=== PATIENT | female | born 2000 | race American Indian/Alaskan Native ===

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

== ENCOUNTER 2019-04-23 18:00 | Emergency (ER) | payer MEDICAID, OTHER ==
[2019-04-23 18:15] VITALS: BP 124/70
--- NOTE | 2019-04-23 18:15 | Event Note ---
ED Screening Note Date of service: 04/23/19 Time: 18:14 ED Screening Note: 19 y/o female comes in for headache times since . LMP April 02. Denies any trauma. This initial assessment/diagnostic orders/clinical plan/treatment(s) is/are subject to change based on patients health status, clinical progression and re- assessment by fellow clinical providers in the ED. Further treatment and workup at subsequent clinical providers discretion. Patient/guardian urged not to elope from the ED as their condition may be serious if not clinically assessed and managed. Initial orders include:
[2019-04-23] MEDS ORDERED: DECADRON IM ONE (20:23)
[2019-04-23] MEDS ORDERED: BENADRYL PO ONE (20:23)
[2019-04-23] MEDS ORDERED: TYLENOL PO ONE (20:23)
[2019-04-23] MEDS ORDERED: REGLAN PO ONE (20:23)
--- NOTE | 2019-04-23 21:49 | Emergency Department Report ---
ED Headache HPI - General Chief Complaint: Headache Stated Complaint: HEADACHE/BP HIGH Time Seen by Provider: 04/23/19 20:22 - History of Present Illness Initial Comments: 19 y/o female comes in for headache times since . hx of same to same location and intensity , there is associated sinus pain pressure and sweling with yellow greening post nasal drip. LMP April 02. Denies any trauma. Timing/Duration: 1 week Quality: moderate Head Injury Location: frontal Recent Head Trauma: no recent headache/trauma, occasional headaches Modifying Factors: improves with: movement Associated Symptoms: facial pain, nasal congestion, nasal drainage, sinus infection Allergies/Adverse Reactions: Allergies No Known Allergies Allergy (Verified 04/23/19 18:15) Home Medications: Ambulatory Orders Acetaminophen [Acetaminophen TAB] 1,000 mg PO Q6HR PRN #30 tablet 04/23/19 Amoxicillin/Potassium Clav [Augmentin 875-125 Tablet] 1 each PO BID 10 Days #20 tablet 04/23/19 Metoclopramide [Reglan] 10 mg PO Q6H PRN #30 tablet 04/23/19 diphenhydrAMINE [Benadryl CAP] 25 mg PO Q6HR PRN #30 capsule 04/23/19 ED Review of Systems ROS: Stated complaint: HEADACHE/BP HIGH Other details as noted in HPI Constitutional: denies: chills, fever Eyes: denies: eye pain, eye discharge, vision change ENT: congestion. denies: ear pain, throat pain Respiratory: denies: cough, shortness of breath, wheezing Cardiovascular: denies: chest pain, palpitations Endocrine: no symptoms reported Gastrointestinal: denies: abdominal pain, nausea, diarrhea Genitourinary: denies: urgency, dysuria, discharge Musculoskeletal: denies: back pain, joint swelling, arthralgia Skin: denies: rash, lesions Neurological: headache. denies: weakness, numbness, paresthesias, confusion, vertigo Psychiatric: denies: anxiety, depression Hematological/Lymphatic: denies: easy bleeding, easy bruising ED Past Medical Hx - Past Medical History Previous Medical History?: Yes Hx Hypertension: No Hx Congestive Heart Failure: No Hx Diabetes: No Hx Deep Vein Thrombosis: No Hx Renal Disease: No Hx Sickle Cell Disease: Yes (trait) Hx Seizures: No Hx Asthma: Yes Hx COPD: No Hx HIV: No - Surgical History Past Surgical History?: Yes Additional Surgical History: ABD HERNIA REPAIR / T&A - Social History Smoking Status: Never Smoker Substance Use Type: None, Marijuana - Medications Home Medications: Home Medications Medication Instructions Recorded Confirmed Last Taken Type Acetaminophen [Acetaminophen TAB] 1,000 mg PO Q6HR PRN #30 tablet 04/23/19 Unknown Rx Amoxicillin/Potassium Clav 1 each PO BID 10 Days #20 tablet 04/23/19 Unknown Rx [Augmentin 875-125 Tablet] Metoclopramide [Reglan] 10 mg PO Q6H PRN #30 tablet 04/23/19 Unknown Rx diphenhydrAMINE [Benadryl CAP] 25 mg PO Q6HR PRN #30 capsule 04/23/19 Unknown Rx ED Physical Exam - General Limitations: No Limitations General appearance: alert, in no apparent distress - Head Head exam: Present: atraumatic, normocephalic - Eye Eye exam: Present: normal appearance, PERRL, EOMI. Absent: conjunctival injection, nystagmus Pupils: Present: normal accommodation - ENT ENT exam: Present: mucous membranes moist, TM's normal bilaterally, normal external ear exam, other (bilat sinus pressure swelling yellow rhinorrhea pain to palpation ) - Expanded ENT Exam Expanded Ear exam: Present: normal external inspection Mouth exam: Absent: trismus Throat exam: Positive: tonsillar erythema, other (uvula midline no exudate ). Negative: tonsillomegaly, tonsillar exudate, R peritonsillar mass, L peritonsillar mass - Neck Neck exam: Present: normal inspection - Respiratory Respiratory exam: Present: normal lung sounds bilaterally, chest wall tenderness. Absent: respiratory distress, wheezes, stridor - Cardiovascular Cardiovascular Exam: Present: regular rate, normal rhythm, normal heart sounds. Absent: systolic murmur, diastolic murmur, rubs, gallop - GI/Abdominal GI/Abdominal exam: Present: soft, normal bowel sounds. Absent: distended, tenderness, guarding, rebound, rigid, bruit, hernia - Extremities Exam Extremities exam: Present: normal inspection - Back Exam Back exam: Present: normal inspection - Neurological Exam Neurological exam: Present: alert, oriented X3, CN II-XII intact, normal gait, reflexes normal. Absent: motor sensory deficit - Expanded Neurological Exam Expanded Patient oriented to: Present: person, place, time Speech: Present: fluid speech Cranial nerves: EOM's Intact: Normal, Gag Reflex: Normal, Tongue Deviation: Normal, Nystagmus: Normal, Facial Sensation: Normal Cerebellar function: Finger to Nose: Normal, Heel to Singh: Normal, Romberg: Normal Upper motor neuron: Javi Neglect: Normal, Pronator Drift: Normal, Babinski Sign: Normal, Sensory Extinction: Normal Motor strength exam: RUE: 5, LUE: 5, RLE: 5, LLE: 5 Best Eye Response (Riley): (4) open spontaneously Best Motor Response (Turin): (6) obeys commands Best Verbal Response (Turin): (5) oriented Riley Total: 15 - Psychiatric Psychiatric exam: Present: normal affect, normal mood - Skin Skin exam: Present: warm, dry, intact, normal color. Absent: rash ED Course Vital Signs 04/23/19 04/23/19 18:13 20:31 Temperature 99.7 F H Pulse Rate 80 Respiratory 16 16 Rate Blood Pressure 124/70 O2 Sat by Pulse 100 Oximetry ED Medical Decision Making - Medical Decision Making headache relieved to 11/03 plan tx for sinusitus, headache, pt will follow up with pcp in 2-3 days return to ed if symptoms worsen. pt dc'd to home in stable condition at this time pt is ambulatory with steady gait nad at this time. Critical care attestation.: If time is entered above; I have spent that time in minutes in the direct care of this critically ill patient, excluding procedure time. ED Disposition Clinical Impression: Headache Qualifiers: Headache type: unspecified Headache chronicity pattern: acute headache Intractability: not intractable Qualified Code(s): R51 - Headache Sinusitis Qualifiers: Sinusitis location: maxillary Chronicity: acute Recurrence: non-recurrent Qualified Code(s): J01.00 - Acute maxillary sinusitis, unspecified Disposition: DC-01 TO HOME OR SELFCARE Is pt being admited?: No Does the pt Need Aspirin: No Condition: Stable Instructions: Acute Headache (ED), Sinusitis (ED) Prescriptions: Acetaminophen [Acetaminophen TAB] 1,000 mg PO Q6HR PRN #30 tablet PRN Reason: Headache Amoxicillin/Potassium Clav [Augmentin 875-125 Tablet] 1 each PO BID 10 Days #20 tablet diphenhydrAMINE [Benadryl CAP] 25 mg PO Q6HR PRN #30 capsule PRN Reason: Headache Metoclopramide [Reglan] 10 mg PO Q6H PRN #30 tablet PRN Reason: Headache Referrals: REGI CORLEY MD [Staff Physician] - 3-5 Days Forms: Work/School Release Form(ED) Time of Disposition: 22:02
== END 2019-04-23 21:54 | disposition home or self-care (01) ==
LOC: ED 18:00
DX: J01.00 Acute maxillary sinusitis, unspecified (principal); J45.909 Unspecified asthma, uncomplicated; F12.10 Cannabis abuse, uncomplicated; Z98.890 Other specified postprocedural states; Z90.89 Acquired absence of other organs
CPT/HCPCS: 96372; 99282; J1100

== ENCOUNTER 2019-04-27 16:05 | Emergency (ER) | payer OTHER ==
--- NOTE | 2019-04-27 16:16 | Event Note ---
ED Screening Note ED Screening Note: STARTED ON AMOX AND FLAGYL FOR SINUS INFECTION NOW CO SWELLING IN HER MOUTH ABC INTACT VSS This initial assessment/diagnostic orders/clinical plan/treatment(s) is/are subject to change based on patients health status, clinical progression and re- assessment by fellow clinical providers in the ED. Further treatment and workup at subsequent clinical providers discretion. Patient/guardian urged not to elope from the ED as their condition may be serious if not clinically assessed and managed. Initial orders include: STEROIDS RE EVAL IN ACC
[2019-04-27 16:44] VITALS: BP 137/79
[2019-04-27] MEDS ORDERED: DELTASONE PO ONE (16:57)
[2019-04-27] MEDS ORDERED: PEPCID PO ONE (16:57)
--- NOTE | 2019-04-27 17:17 | Emergency Department Report ---
HPI - General Chief Complaint: Allergic Reaction Time Seen by Provider: 04/27/19 16:16 - HPI HPI: This is a 19-year-old female presents to ED complaining of allergic reaction to Reglan which she was prescribed 4 days ago. Patient states that she felt her jaw locking about an hour ago. Patient states she took Benadryl 30 minutes prior to arrival. Patient states she does feel better. She denies any rash, fever, nausea vomiting, abdominal pain, headache shortness of breath ED Past Medical Hx - Past Medical History Hx Hypertension: No Hx Congestive Heart Failure: No Hx Diabetes: No Hx Deep Vein Thrombosis: No Hx Renal Disease: No Hx Sickle Cell Disease: Yes (trait) Hx Seizures: No Hx Asthma: Yes Hx COPD: No Hx HIV: No - Surgical History Additional Surgical History: ABD HERNIA REPAIR / T&A - Social History Smoking Status: Never Smoker Substance Use Type: None - Medications Home Medications: Home Medications Medication Instructions Recorded Confirmed Last Taken Type Acetaminophen [Acetaminophen TAB] 1,000 mg PO Q6HR PRN #30 tablet 04/23/19 Unknown Rx Amoxicillin/Potassium Clav 1 each PO BID 10 Days #20 tablet 04/23/19 Unknown Rx [Augmentin 875-125 Tablet] Metoclopramide [Reglan] 10 mg PO Q6H PRN #30 tablet 04/23/19 Unknown Rx Famotidine [Pepcid] 20 mg PO DAILY #5 tablet 04/27/19 Unknown Rx diphenhydrAMINE [Benadryl CAP] 25 mg PO QHS PRN #30 capsule 04/27/19 Unknown Rx ED Review of Systems ROS: Stated complaint: ALLERGIC REACTION Other details as noted in HPI Comment: All other systems reviewed and negative Physical Exam - Physical Exam Vital Signs: Vital Signs 04/27/19 16:21 Temperature 98.2 F Pulse Rate 83 Respiratory 16 Rate Blood Pressure 137/79 [Left] O2 Sat by Pulse 100 Oximetry Physical Exam: GENERAL: Alert and oriented x3, no apparent distress, Normal Gait, atraumatic. HEAD: Head is normocephalic and a-traumatic. NOSE: Nose symetrical, Nontender,Nares appeared normal. MOUTH:Mouth is well hydrated and without lesions. Tonsils nonerythematous or swo llen, Uvula midline, Tongue not elevated. Mucous membranes are moist. Posterior pharynx clear, no exudate or lesions. Patent airways. NECK: Supple. Non edematous, No carotid bruits. No lymphadenopathy or thyromegaly. No C-spine tenderness LUNGS: Symetrical with respiration, No wheezing, no rales or crackles, CTAB. HEART: S1, S2 present, regular rate and rhythm without murmur, no rubs, no gallops. NEUROLOGIC: The patient is cooperative with no focal neurologic deficits. SKIN: Warm and dry, No lesions, No ulceration or induration present. ED Course Vital Signs 04/27/19 16:21 Temperature 98.2 F Pulse Rate 83 Respiratory 16 Rate Blood Pressure 137/79 [Left] O2 Sat by Pulse 100 Oximetry ED Medical Decision Making - Medical Decision Making 19-year-old female presented allergic reaction to Reglan. Patient states that she took Benadryl is helping. Patient received Pepcid and 60 mg of prednisone in the ED. Patient has airway compromise or respiratory discomfort. Vital signs are normal she is in no acute distress. Discussed the patient to stop taking Reglan. Impression increasing sensation of something medication. At this time patient has no neurologic deficit, airway compromise or any respiratory distress Discussed follow-up with primary care physician. Critical care attestation.: If time is entered above; I have spent that time in minutes in the direct care of this critically ill patient, excluding procedure time. ED Disposition Clinical Impression: Allergic reaction caused by a drug Disposition: DC-01 TO HOME OR SELFCARE Is pt being admited?: No Does the pt Need Aspirin: No Condition: Stable Instructions: Anaphylaxis (ED) Additional Instructions: Make sure to follow up with the primary care physician as discussed. Take all your medications as you've been prescribed. If you have any worsening symptoms or develop new symptoms please return to ED immediately. Prescriptions: diphenhydrAMINE [Benadryl CAP] 25 mg PO QHS PRN #30 capsule PRN Reason: Anaphylaxis Famotidine [Pepcid] 20 mg PO DAILY #5 tablet Referrals: SRIRAM YOUNG MD [Primary Care Provider] - 3-5 Days Forms: Accompanied Note, Work/School Release Form(ED) Time of Disposition: 17:18
== END 2019-04-27 17:25 | disposition home or self-care (01) ==
LOC: ED 16:05
DX: M26.69 Other specified disorders of temporomandibular joint (principal); T45.0X5A Adverse effect of antiallergic and antiemetic drugs, initial encounter; J45.909 Unspecified asthma, uncomplicated; Y92.89 Other specified places as the place of occurrence of the external cause
CPT/HCPCS: 99282; J7512